=== PATIENT | male | born 1945 | race Caucasian/White ===

== ENCOUNTER 2017-06-08 06:21 | Day surgery (SDC) | payer MEDICARE ==
[2017-06-08] MEDS ORDERED: Sodium Chloride 0.9% 1,000 ML IV SCH (07:00)
[2017-06-08] MEDS ORDERED: Midazolam 1 MG/ML 2 ML SDV ONE (07:35)
[2017-06-08] MEDS ORDERED: fentaNYL 100 MCG/2 ML SDV ONE (07:35)
[2017-06-08] MEDS ORDERED: Propofol 200 MG/20 ML SDV ONE (07:35)
[2017-06-08 09:07] VITALS: BP 116/74
--- NOTE | 2017-06-11 08:00 | OR ---
DATE OF PROCEDURE: 06/08/2017 PROCEDURE PERFORMED: Colonoscopy. FINDINGS: 1. Descending colon polyp, approximately 5 mm, completely removed using cold biopsy forceps. 2. Diverticulosis, mild, limited to the sigmoid colon. COMPLICATIONS: None. ANESTHESIA: MAC. RISKS: Risks, benefits, alternatives, and limitations including, but not limited to infection, bleeding, and perforation were explained to the patient, and they wished to proceed. DESCRIPTION OF PROCEDURE: The patient was placed in left lateral decubitus position. Digital rectal exam was performed without abnormality. The scope was introduced and advanced atraumatically to the ileocecal valve. The scope was brought back to the ascending, transverse, descending colon, and retroflexed. The patient had the aforementioned polyp. Aside from this, no other abnormalities, except for diverticulosis. The diverticulosis was described as mild and limited to sigmoid colon. No evidence of old or new blood. No obstruction noted. The patient tolerated the procedure well. Timothy Glaser MD /[id number]
== END 2017-06-08 09:15 | disposition home or self-care (01) ==
LOC: JP.SDS 06:21
PROVIDERS: ATTEND Surgery
DX: Z12.11 Encounter for screening for malignant neoplasm of colon (principal); K63.5 Polyp of colon; K57.30 Diverticulosis of large intestine without perforation or abscess without bleeding; E78.5 Hyperlipidemia, unspecified
CPT/HCPCS: 45380; J2250; J2704; J3010; J7040; 88305

== ENCOUNTER 2020-09-30 16:45 | Emergency (ER) | payer MEDICARE ==
[2020-09-30 17:12] VITALS: BP 156/84; PULSE 72
[2020-09-30] MEDS ORDERED: Sodium Chloride 0.9% 10 ML Syringe FLUSH PRN (17:23)
[2020-09-30] MEDS ORDERED: cefTRIAXone 2 GM in Sodium Chloride 0.9% 50 ML IV ONE (17:23)
[2020-09-30] MEDS ORDERED: Sulfamethoxazole/Trimethoprim 800-160 MG Tab PO ONE (17:23)
--- NOTE | 2020-09-30 17:29 | EDM.PDOC ---
ED HPI GENERAL MEDICAL PROBLEM - General Chief Complaint: Skin Complaint Stated Complaint: SWOLLEN LEFT HAND Time Seen by Provider: 09/30/20 17:15 Source of Information: Reports: Patient, Old Records History Limitations: Reports: No Limitations - History of Present Illness INITIAL COMMENTS - FREE TEXT/NARRATIVE: 75 yo non-diabetic male presents with a L hand infection. He knicked his L hand with a hatchet on Sunday and has slowly been getting more red, warm and swollen since. He denies any fever. He has not discussed with his family doctor. Some drainage from the small wound. Onset: Gradual Onset Date: 09/28/20 Duration: Day(s): (2), Getting Worse Location: Reports: Upper Extremity, Left Quality: Reports: Dull Severity: Mild Improves with: Reports: None Worsens with: Reports: Other (time) Context: Reports: Other (see HPI) Associated Symptoms: Reports: No Other Symptoms. Denies: Fever/Chills Treatments DIRECT RESPONSE CONSULTANT: Reports: Other (see below) (Neosporin topically) - Related Data Allergies Allergy/AdvReac Type Severity Reaction Status Date / Time No Known Allergies Allergy Verified 09/30/20 17:35 Home Meds: Home Meds Naproxen Sodium [Aleve] 220 mg PO BEDTIME 07/28/14 [History] atorvaSTATin [Lipitor] 20 mg PO DAILY 07/28/14 [History] cephALEXin [Cephalexin] 500 mg PO QID #36 tablet 09/30/20 [Rx] Past Medical History HEENT History: Reports: Impaired Vision Cardiovascular History: Reports: High Cholesterol Gastrointestinal History: Reports: Colon Polyp Genitourinary History: Reports: Prostate Disorder, Other (See Below) Other Genitourinary History: history of prostate cancer; prostate removed Musculoskeletal History: Reports: Fracture Oncologic (Cancer) History: Reports: Prostate - Infectious Disease History Infectious Disease History: Reports: Chicken Pox, Measles, Mumps - Past Surgical History HEENT Surgical History: Reports: None Cardiovascular Surgical History: Reports: None GI Surgical History: Reports: Colonoscopy, Hernia, Inguinal Male Surgical History: Reports: None Musculoskeletal Surgical History: Reports: None Social & Family History - Family History Family Medical History: No Pertinent Family History - Caffeine Use Caffeine Use: Reports: Coffee ED ROS GENERAL - Review of Systems Review Of Systems: See Below Constitutional: Reports: No Symptoms. Denies: Fever, Chills Musculoskeletal: Reports: No Symptoms Skin: Reports: Erythema, Wound Neurological: Reports: No Symptoms ED EXAM, SKIN/RASH Exam: See Below Exam Limited By: No Limitations General Appearance: Alert, WD/WN, No Apparent Distress Head: Atraumatic, Normocephalic Neck: Normal Inspection Respiratory/Chest: No Respiratory Distress, Lungs Clear, Normal Breath Sounds, No Accessory Muscle Use Cardiovascular: Regular Rate, Rhythm, No Edema Extremities: Pedal Edema (L hand is swollen. ), Increased Warmth (L hand and wrist), Redness (L hand and wrist). No: Non-Tender, No Pedal Edema Neurological: Alert, Oriented, CN II-XII Intact, Normal Cognition, No Motor/Sensory Deficits Psychiatric: Normal Affect, Normal Mood Skin: Warm, Dry, No Rash, Erythema (L hand and wrist), Wound/Incision (small incision to dorso-medial L hand) Location, Skin: Upper Extremity, Left Characteristics: Linear Associated features: Warmth, Tenderness, Swelling Course - Vital Signs Text/Narrative:: Unable to express anything to culture Last Recorded V/S: Last Vital Signs Temp 35.8 C L 09/30/20 17:37 Pulse 72 09/30/20 17:37 Resp 16 09/30/20 17:37 BP 156/84 H 09/30/20 17:37 Pulse Ox 96 09/30/20 17:37 - Orders/Labs/Meds Orders: Active Orders 24 hr Category Date Time Status Sodium Chloride 0.9% [Saline Flush] Med 09/30/20 17:23 Active 10 ml FLUSH ASDIRECTED PRN cefTRIAXone [Rocephin] 2 gm Med 09/30/20 17:23 Active Sodium Chloride 0.9% [Normal Saline] 50 ml IV ONETIME Saline Lock Insert [OM.PC] Routine Oth 09/30/20 17:23 Ordered Medication Orders Ceftriaxone Sodium 2 gm/ (Sodium Chloride) 50 mls @ 100 mls/hr IV ONETIME ONE Stop: 09/30/20 17:52 Last Admin: 09/30/20 17:47 Dose: 100 mls/hr Documented by: THIAGO Sodium Chloride (Saline Flush) 10 ml FLUSH ASDIRECTED PRN PRN Reason: Keep Vein Open Last Admin: 09/30/20 17:47 Dose: 10 ml Documented by: THIAGO Labs: Laboratory Tests 09/30/20 Range/Units 17:25 POC Glucose 99 (74-106) MG/DL Meds: Medications Generic Name Dose Route Start Last Admin Trade Name Morgan PRN Reason Stop Dose Admin Ceftriaxone Sodium 2 gm/ 50 mls @ 100 mls/hr 09/30/20 17:23 09/30/20 17:47 Sodium Chloride IV 09/30/20 17:52 100 mls/hr ONETIME ONE Administration Sodium Chloride 10 ml 09/30/20 17:23 09/30/20 17:47 Saline Flush FLUSH 10 ml ASDIRECTED PRN Administration Keep Vein Open Discontinued Medications Generic Name Dose Route Start Last Admin Trade Name Morgan PRN Reason Stop Dose Admin Trimethoprim/Sulfamethoxazole 1 tab 09/30/20 17:23 09/30/20 17:40 Septra Ds PO 09/30/20 17:24 1 tab ONETIME ONE Administration Departure - Departure Time of Disposition: 18:20 Disposition: Home, Self-Care 01 Condition: Fair Clinical Impression: Cellulitis of left hand - Discharge Information *PRESCRIPTION DRUG MONITORING PROGRAM REVIEWED*: No *COPY OF PRESCRIPTION DRUG MONITORING REPORT IN PATIENT FLAVIO: No Instructions: Cellulitis, Adult, [id number] Referrals: Brenda Green MD [Primary Care Provider] - Forms: ED Department Discharge Additional Instructions: Take TMP/SMZ DS every 12 hrs. Recheck in the clinic with your provider tomorrow afternoon. I am providing you with an Rx for cephalexin, hold on filling this until you get the green light from your provider. Elevate your hand above your heart and keep warm compresses on it. Take acetaminophen as needed for pain relief per package instructions. Sepsis Event Note (ED) - Focused Exam Vital Signs: Vital Signs Temp Pulse Resp BP Pulse Ox 09/30/20 17:37 35.8 C L 72 16 156/84 H 96 09/30/20 17:11 35.8 C L 72 16 156/84 H 96 - My Orders Last 24 Hours: My Active Orders 09/30/20 17:23 Sodium Chloride 0.9% [Saline Flush] 10 ml FLUSH ASDIRECTED PRN cefTRIAXone [Rocephin] 2 gm Sodium Chloride 0.9% [Normal Saline] 50 ml IV ONETIME Saline Lock Insert [OM.PC] Routine - Assessment/Plan Last 24 Hours: My Active Orders 09/30/20 17:23 Sodium Chloride 0.9% [Saline Flush] 10 ml FLUSH ASDIRECTED PRN cefTRIAXone [Rocephin] 2 gm Sodium Chloride 0.9% [Normal Saline] 50 ml IV ONETIME Saline Lock Insert [OM.PC] Routine
== END 2020-09-30 18:30 | disposition home or self-care (01) ==
LOC: JP.ED 16:45
DX: L03.114 Cellulitis of left upper limb (principal); E78.00 Pure hypercholesterolemia, unspecified; Z79.899 Other long term (current) drug therapy
CPT/HCPCS: 82962; 96365; 99283; A9270; J0696; J7050

== ENCOUNTER → 2022-08-08 | Day surgery (SDC) | payer MEDICARE | LOC: JP.SDS 06:00 | DX: Z12.11 Encounter for screening for malignant neoplasm of colon (principal); D12.3 Benign neoplasm of transverse colon; K57.30 Diverticulosis of large intestine without perforation or abscess without bleeding | CPT/HCPCS: 88305 ==